=== PATIENT | female | born 1985 | race Two or more races ===

== ENCOUNTER 2017-04-30 22:42 | Emergency (ER) | payer SELFPAY ==
[2017-04-30 22:51] VITALS: BP 127/89
[2017-05-01] MEDS ORDERED: LEVSIN/MAALOX/LIDOC VISC PO ONE (01:43)
[2017-05-01] MEDS ORDERED: TORADOL 60 MG VIAL IM ONE (01:45)
--- NOTE | 2017-05-01 01:49 | DR.GENAD ---
HPI - PCP Primary Care Physician: NFD - Complaint/Symptoms Chief Complaint Doctors Comments: Patient complains of pain in epigastric area that radiates to her back for the past 14 hours. States onset of pain at noon and it comes and goes with the pain being 8 of 10. patient denies nausea or vomting, cold, or cough. states she has been taking Tylenol without improvement. she denies agnes, hematuria, vomiting or diarrhea. Chief Complaint:: "It started today at noon. I started having pain in my upper middle abdomen and it is radiating all the way around to my back" - Nurses notes reviewed Nurses Notes Review: Yes - Source History Provided: Family Member - Mode of Arrival Mode of Arrival: Ambulatory - Timing Onset of Chief Complaint: 04/30/17 Came on: Suddenly - Duration Duration: Intermittent How lon Duration: Hours - Location Location: epigastric pain - Severity Severity: Moderate - Modifying Factors Worsens:: movement Improves:: nothing PMH - PMH Past Medical History: No Past Surgical History: Yes Past Surgical History Comment: for kidney stones - Family History History of Family Medical Conditions: No - Social History Does patient currently use any type of tobacco product: No Have you used tobacco products in the last 12 months: No Type of Tobacco Use: None Does any household member use tobacco: No Alcohol Use: None Do you use any recreational Drugs:: No Lives With: Family Lives Where: Home - infectious screening In the last 2 months have you had wt loss of >10#?: NO Have you had fever, night sweats or hemotysis?: No Have you traveled outside the country in the last 6 months?: No Isolation: Standard ROS - Review of Systems Constitutional: No Symptoms Reported, Loss of Appetite Eyes: No Symptoms Reported. negative: See HPI, Eye Pain, Blurred Vision, Tearing, Discharge, Photophobia, Diplopia, Other ENTM: No Symptoms Reported Respiratoy: No Symptoms Reported Cardiovascular: No Symptoms Reported Gastrointestinal/Abdominal: No Symptoms Reported, Abdominal Pain. negative: See HPI, Constipation, Diarrhea, Nausea, Vomiting, Food Intolerance, Other Genitourinary: No Symptoms Reported Neurological: No Symptoms Reported. negative: See HPI, Anxiety, Depressed, Emotional Problems, Headache, Numbness, Paresthesia, Pre-existing Deficit, Seizure, Tingling, Tremors, Weakness, Dizziness, Problems Walking, Speech Problem, Other Musculoskeletal: No Symptoms Reported Integumentary: No Symptoms Reported Hematologic/Lymphatic: No Symptoms Reported Endocrine: No Symptoms Reported Psychiatric: No Symptoms Reported PE - Vital Signs Vitals: Temperature 99.1 F Pulse Rate 83 Respiratory Rate 20 Blood Pressure [Right Arm] 122/80 Blood Pressure 127/89 O2 Sat by Pulse Oximetry 98 - General Limitations: No Limitations General Appearance: Alert, In Distress (moderate) - Head Head Exam: Normal Inspection, Atraumatic, Normocephalic - Eyes Eye exam: Normal Appearance, PERRL, EOMI. negative: Scleral Icterus, Conjunctival Injection, Nystagmus, Miosis, Mydrasis, Periorbital Swelling, Periorbital Tenderness, Other - ENT ENT Exam: Normal Exam, Normal Oropharynx, Normal External Ear Exam, Mucous Membranes Moist, TM's Normal Bilaterally External Ear Exam: Normal External Inspection TM/Canal Exam: Bilateral Normal Nose Exam: Normal Nose Exam Mouth Exam: Normal Inspection Throat Exam: Normal Inspection - Neck Neck Exam: Normal Inspection, Full ROM, Trachea Midline - Chest Chest Inspection: Normal Inspection, Symmetric Chest Wall Rise - Respiratory Respiratory Exam: Normal Lung Sounds Bilat Respiratory Exam: Bilateral Clear to Auscultation - Cardiovascular Cardiovascular Exam: Regular Rate, Normal Rhythm, Normal Heart Sounds - Abdominal Exam Abdominal Exam: Normal Inspection, Normal Bowel Sounds, Tenderness (epigastric tenderness) Abdominal Tenderness: Epigastrium, Moderate - Extremities Extremities Exam: Normal Inspection, Full ROM, Normal Capillary Refill. negative: Tenderness, Edema, Joint Swelling, Calf Tenderness, Other - Back Back Exam: Normal Inspection, Full ROM. negative: Tenderness, (R) CVA Tenderness, (L) CVA Tenderness, Muscle Spasm, Paraspinal Tenderness, Vertebral Tenderness, Rashes, (R) Sciatic Notch Tenderness, (L) Sciatic Notch Tendern, (R ) Straight Leg Raise, (L) Straight Leg Raise, Other - Neurologic Neurological Exam: Alert, Oriented X3, CN II-XII Intact, Normal Gait, Reflexes Normal - Psychiatric Psychiatric Exam: Normal Affect, Normal Mood - Skin Skin Exam: Warm, Dry, Intact, Normal Color ROR - Labs Reviewed Laboratory Results Reviewed?: Yes (all labs and x-ray results reviewed and discussed with patient and translat) Result Diagrams: 05/01/17 01:57 05/01/17 01:57 Laboratory: WBC 11.6 X10^3/uL (3.6-10.0) H 06/03/17 01:57 RBC 4.76 X10^6/uL (3.5-5.4) 05/01/17 01:57 Hgb 14.1 g/dL (12.0-16.0) 05/01/17 01:57 Hct 42.0 % (36.0-47.0) 05/01/17 01:57 MCV 88.2 fL (80.0-100.0) 05/01/17 01:57 MCH 29.6 pg (27.0-34.0) 05/01/17 01:57 MCHC 33.6 g/dL (33.0-35.0) 05/01/17 01:57 RDW 13.1 % (11.6-16.5) 05/01/17 01:57 Plt Count 283 X10^3/uL (150.0-450.0) 05/01/17 01:57 MPV 8.5 fL (7.4-11.0) 05/01/17 01:57 Neut % 82.1 % (42.0-75.0) H 05/01/17 01:57 Lymph % 8.9 % (21.0-51.0) L 05/01/17 01:57 [place] % 4.8 % (0.0-13.0) 05/01/17 01:57 Eos % 3.7 % (0.9-2.9) H 05/01/17 01:57 Baso % 0.5 % (0.2-1.0) 05/01/17 01:57 Neut # 9.5 x10^3/uL (2.2-4.8) H 05/01/17 01:57 Lymph # 1.0 X10^3/uL (1.3-2.9) L 05/01/17 01:57 [place] # 0.6 x10^3/uL (0.3-0.8) 05/01/17 01:57 Eos # 0.4 x10^3/uL (0.0-0.2) H 05/01/17 01:57 Baso # 0.1 X10^3/uL (0.0-0.1) 05/01/17 01:57 Absolute Nucleated RBC 0.0 /100WBC 05/01/17 01:57 Sodium 140 mmol/L (136-145) 05/01/17 01:57 Corrected Sodium TNP 05/01/17 01:57 Potassium 3.2 mmol/L (3.5-5.1) L 05/01/17 01:57 Chloride 105 mmol/L (98-107) 05/01/17 01:57 Carbon Dioxide 24.1 mmol/L (21-32) 05/01/17 01:57 BUN 15 mg/dL (7-18) 05/01/17 01:57 Creatinine 0.82 mg/dL (0.55-1.02) 05/01/17 01:57 Est GFR (MDRD) Af Amer > 60 (>60) 05/01/17 01:57 Est GFR (MDRD) Non-Af > 60 (>60) 05/01/17 01:57 Glucose 104 mg/dL (65-99) H 05/01/17 01:57 Calcium 8.2 mg/dL (8.5-10.1) L 05/01/17 01:57 Corrected Calcium TNP 05/01/17 01:57 Total Bilirubin 1.10 mg/dL (0.2-1.0) H 05/01/17 01:57 AST 38 Units/L (15-37) H 05/01/17 01:57 ALT 54 Units/L (12-78) 05/01/17 01:57 Alkaline Phosphatase 79 Units/L (46-116) 05/01/17 01:57 Total Protein 7.5 g/dL (6.4-8.2) 05/01/17 01:57 Albumin 3.6 g/dL (3.4-5.0) 05/01/17 01:57 Globulin 3.9 g/dL (2.5-4.5) 05/01/17 01:57 Albumin/Globulin Ratio 0.9 Ratio (1.1-2.1) L 05/01/17 01:57 Amylase 54 Units/L (25-115) 05/01/17 01:57 Lipase 81 Units/L (73-393) 05/01/17 01:57 H. pylori IgG Antibody Positive (NEGATIVE) A 05/01/17 01:57 - XRAY XRAY Interpreted by: Radiologist (Abdominal series: No acuat abdominal or chest process identified.) - Diagnosis Discharge Problem: Helicobacter positive gastritis, Hypokalemia, Abdominal pain - Discharge Plan Disposition: 01 HOME, SELF-CARE Condition: Stable Prescriptions: Amoxicillin-Clarithromycin W/ [PrevPac 14-day pack] 1 dose PO BID #1 pkg Bismuth Subsalicylate [Pepto-Bismol] 524 mg PO QID PRN #56 tab PRN Reason: Metronidazole [FLAGYL 500 MG *] 500 mg PO DAILY PRN #42 tab PRN Reason: Ranitidine HCl [ZANTAC TAB 150 MG *] 150 mg PO BID #60 tab Tetracycline HCl [Tetracycline Hydrochlorid] 500 mg PO TID PRN #42 cap PRN Reason: - Follow ups/Referrals Follow ups/Referrals: BRIANA,Danielle [Primary Care Provider] - 3 days GEOVANI JACK [STAFF PHYSICIAN] - 3 days - Instructions Instructions: Gastritis, Adult, Helicobacter Pylori Antibodies Test
[2017-05-01 02:05] LABS: BASOPHILS # (AUTO) 0.1 X10^3/uL (0.0-0.1); BASOPHILS % (AUTO) 0.5 % (0.2-1.0); EOSINOPHILS # (AUTO) 0.4 x10^3/uL (0.0-0.2); EOSINOPHILS % (AUTO) 3.7 % (0.9-2.9); HEMOGLOBIN 14.1 g/dL (12.0-16.0); LYMPHOCYTES % (AUTO) 8.9 % (21.0-51.0); MEAN CORPUSCULAR HEMOGLOBIN 29.6 pg (27.0-34.0); MEAN CORPUSCULAR HGB CONC 33.6 g/dL (33.0-35.0); MEAN CORPUSCULAR VOLUME 88.2 fL (80.0-100.0); MEAN PLATELET VOLUME 8.5 fL (7.4-11.0); MONOCYTES # (AUTO) 0.6 x10^3/uL (0.3-0.8); MONOCYTES % (AUTO) 4.8 % (0.0-13.0); NEUTROPHILS # (AUTO) 9.5 x10^3/uL (2.2-4.8); NEUTROPHILS % (AUTO) 82.1 % (42.0-75.0); PLATELET COUNT 283 X10^3/uL (150.0-450.0); RED BLOOD COUNT 4.76 X10^6/uL (3.5-5.4); RED CELL DISTRIBUTION WIDTH 13.1 % (11.6-16.5); WHITE BLOOD COUNT 11.6 X10^3/uL (3.6-10.0)
[2017-05-01] MEDS ORDERED: TORADOL 60 MG VIAL ONE (02:11)
[2017-05-01] MEDS ORDERED: LEVSIN/MAALOX/LIDOC VISC ONE (02:12)
[2017-05-01 02:15] LABS: ALANINE AMINOTRANSFERASE 54 Units/L (12-78); ALBUMIN 3.6 g/dL (3.4-5.0); ALKALINE PHOSPHATASE 79 Units/L (46-116); AMYLASE 54 Units/L (25-115); ASPARTATE AMINO TRANSFERASE 38 Units/L (15-37); BLOOD UREA NITROGEN 15 mg/dL (7-18); CALCIUM 8.2 mg/dL (8.5-10.1); CARBON DIOXIDE 24.1 mmol/L (21-32); CHLORIDE 105 mmol/L (98-107); CREATININE 0.82 mg/dL (0.55-1.02); GLUCOSE 104 mg/dL (65-99); LIPASE 81 Units/L (73-393); SODIUM 140 mmol/L (136-145); TOTAL PROTEIN 7.5 g/dL (6.4-8.2); eGFR BLACK RACES > 60 (>60); eGFR NON BLACK RACES > 60 (>60)
--- NOTE | 2017-05-01 02:19 | RAD ---
Acute abdominal series with single view chest Indication: Umbilical abdominal pain. Comparison: Chest x-ray 08/05/2016 Findings: The heart size is normal. The lungs are mildly hypoinflated, but grossly clear. The bowel gas pattern is nonobstructed. Gas and fecal material is present within the normal caliber colon. The re is a relative paucity of small bowel gas. No free air is identified. Cholecystectomy clips overli e the right upper quadrant and an IUD overlies the pelvis. Impression: No acute abdominal or chest process identified. Reported By:
== END 2017-05-01 03:14 | disposition home or self-care (01) ==
LOC: ER 22:42
DX: E87.6 Hypokalemia (principal); B96.81 Helicobacter pylori [H. pylori] as the cause of diseases classified elsewhere; R10.13 Epigastric pain
CPT/HCPCS: 36415; 74022; 80053; 82150; 83690; 85025; 86677; 96372; 99283; J1885